=== PATIENT | female | born 1980 | race Caucasian/White ===

== ENCOUNTER 2017-01-21 01:06 | Inpatient (IN) | payer BC ==
[2017-01-21] MEDS ORDERED: Dibucaine 1% 28.35 GM TUBE PR PRN (08:20)
[2017-01-21] MEDS ORDERED: Witch Hazel PAD* JAR TOPICAL PRN (08:20)
[2017-01-21] MEDS ORDERED: Acetaminophen TAB* 325 MG PO PRN (08:20)
[2017-01-21] MEDS ORDERED: Ibuprofen TAB* 600 MG ONE (08:23)
[2017-01-21] MEDS: Ibuprofen TAB* 600 MG PO PRN ×3 (08:24→20:39)
[2017-01-21] MEDS ORDERED: Simethicone TAB* 80 MG TAB.CHEW PO SCH (08:30)
[2017-01-21] MEDS: Docusate CAP* 100 MG PO SCH ×3 (09:04→20:39)
[2017-01-22] MEDS: Ibuprofen TAB* 600 MG PO PRN ×3 (05:57→19:59)
[2017-01-22 07:55] LABS: Hematocrit 34 % (35-47); Hemoglobin 11.3 g/dl (12.0-16.0); Mean Corpuscular HGB Conc 33 g/dl (31-36); Mean Corpuscular Hemoglobin 30 pg (27-31); Mean Corpuscular Volume 91 fL (80-97); Mean Platelet Volume 10 um3 (7.4-10.4); Red Blood Count 3.78 10^6/ul (4.0-5.4); Red Cell Distribution Width 16 % (10.5-15); White Blood Count 14.3 10^3/ul (3.5-10.8)
[2017-01-22] MEDS: Docusate CAP* 100 MG PO SCH ×3 (08:52→22:18)
[2017-01-22] MEDS: Ferrous Gluconate TAB* 324 MG TAB PO SCH (22:19)
[2017-01-23] MEDS: Ferrous Gluconate TAB* 324 MG TAB PO SCH (00:06)
[2017-01-23] MEDS: Ibuprofen TAB* 600 MG PO PRN (08:02)
[2017-01-23] MEDS: Docusate CAP* 100 MG PO SCH (08:02)
[2017-01-23 08:06] VITALS: BP 115/69
== END 2017-01-23 10:51 | disposition home or self-care (01) | DRG 560 ==
LOC: MCHOBOUT 01:06 → MCHOB 01:31
PROVIDERS: ADMIT Obstetrics & Gynecology; ATTEND Obstetrics & Gynecology
PROC: 10E0XZZ Delivery of Products of Conception, External Approach (ICD-10-PCS; principal; 2017-01-21)
PROC: 0KQM0ZZ Repair Perineum Muscle, Open Approach (ICD-10-PCS; 2017-01-21)
PROC: 4A1HXCZ Monitoring of Products of Conception, Cardiac Rate, External Approach (ICD-10-PCS; 2017-01-21)
DX: O48.0 Post-term pregnancy (principal); O09.523 Supervision of elderly multigravida, third trimester; Z3A.40 40 weeks gestation of pregnancy; Z37.0 Single live birth; O70.1 Second degree perineal laceration during delivery; Z88.0 Allergy status to penicillin; Z91.040 Latex allergy status; Z87.891 Personal history of nicotine dependence
CPT/HCPCS: 36415; 85025; A9270-GY

== ENCOUNTER 2018-10-20 09:57 | Emergency (ER) | payer BC ==
[2018-10-20 10:13] VITALS: BP 128/62
--- NOTE | 2018-10-20 10:37 | UC ---
Headache HPI - HPI Summary HPI Summary: Pt presents with c/o gradual onset migraine, that began last evening. Pt is 10 weeks and did not call her OB provider. Pt has a history of migraines but did not take any of her prescribed migraine medications - History Of Current Complaint Chief Complaint: UCHeadache Stated Complaint: HEADACHE Time Seen by Provider: 10/20/18 10:18 Hx Obtained From: Patient Hx Last Menstrual Period: 05/13/18 ?: Yes Onset/Duration: Gradual Onset, Lasting Hours, Still Present Onset Of Symptoms: Gradual Initially Headache Was: Moderate Currently Pain Is: Moderate Pain Intensity: 6 Timing: Constant Character: Dull, Throbbing, Pressure, Migraine Location of Headache: Parietal - left side Aggravating Factor(s): Bright Lights Allevating Factor(s): Nothing Associated Signs And Symptoms: Positive: Negative - Risk Factors SAH Risk Factors: Negative Meningitis Risk Factors: Negative SDH Risk Factors: Negative Temporal Arteritis Risk Factors: Negative - Allergies/Home Medications Allergies/Adverse Reactions: Allergies Allergy/AdvReac Type Severity Reaction Status Date / Time penicillin V [From Pen-Vee K] Allergy Rash Verified 10/20/18 10:13 Home Medications: Home Medications Acetaminophen [Extra Strength Non-Aspirin] 1,000 mg PO 10/20/18 [History] diphenhydrAMINE HCl [Benadryl Allergy] 25 mg PO 10/20/18 [History] PMH/Surg Hx/FS Hx/Imm Hx Previously Healthy: Yes - Surgical History Surgical History: Yes Surgery Procedure, Year, and Place: lymph node removal - Family History Known Family History: Positive: Cardiac Disease - Social History Occupation: Employed Full-time Lives: With Family Alcohol Use: None Alcohol Amount: 2 DRINKS a time Substance Use Type: None Substance Use Comment - Amount & Last Used: once and a while Smoking Status (MU): Former Smoker Type: Cigarettes Length of Time of Smoking/Using Tobacco: 14 yrs Have You Smoked in the Last Year: No When Did the Patient Quit Smoking/Using Tobacco: 2 yrs ago - Immunization History Most Recent Influenza Vaccination: 2016 Most Recent Tetanus Shot: 11/13/16 Most Recent Pneumonia Vaccination: never Review of Systems All Other Systems Reviewed And Are Negative: Yes Constitutional: Positive: Negative Skin: Positive: Negative Eyes: Positive: Negative ENT: Positive: Negative Respiratory: Positive: Negative Cardiovascular: Positive: Negative Gastrointestinal: Positive: Negative Genitourinary: Positive: Negative Motor: Positive: Negative Neurovascular: Positive: Negative Musculoskeletal: Positive: Negative Neurological: Positive: Headache Psychological: Positive: Negative Is Patient Immunocompromised?: Yes Physical Exam Triage Information Reviewed: Yes Appearance: Well-Appearing Vital Signs: Initial Vital Signs Temp 98.0 F 10/20/18 10:10 Pulse 77 10/20/18 10:10 Resp 18 10/20/18 10:10 BP 128/62 10/20/18 10:10 Pulse Ox 100 10/20/18 10:10 Vital Signs Reviewed: Yes Eye Exam: Normal Eyes: Positive: Other: - PERRLA ENT Exam: Normal Dental Exam: Normal Neck exam: Normal Respiratory Exam: Normal Cardiovascular Exam: Normal Cardiovascular: Positive: RRR Musculoskeletal Exam: Normal Musculoskeletal: Positive: Strength Intact Neurological Exam: Normal Psychological Exam: Normal Skin Exam: Normal Headache Course/Dx - Differential Dx/Diagnosis Provider Diagnosis: Migraine Discharge - Sign-Out/Discharge Documenting (check all that apply): Patient Departure All imaging exams completed and their final reports reviewed: No Studies - Discharge Plan Condition: Stable Disposition: HOME Patient Education Materials: (ED), Migraine Headache (ED) Referrals: Gabby Parmar MD [Primary Care Provider] - Jenny Ordonez CNM [Station Repairer] - 10/20/18 2:00 pm Joe Cabrera MD [Medical Doctor] - Additional Instructions: PLEASE NOTE THAT IF ANY SYMPTOMS CHANGE OR WORSENS PLEASE GO DIRECTLY TO THE CLOSEST EMERGENCY ROOM - Billing Disposition and Condition Condition: STABLE Disposition: Home
== END 2018-10-20 10:57 | disposition home or self-care (01) ==
LOC: UCEAST 09:57
DX: G43.909 Migraine, unspecified, not intractable, without status migrainosus (principal); O26.891 Other specified pregnancy related conditions, first trimester; Z3A.10 10 weeks gestation of pregnancy; Z88.0 Allergy status to penicillin; Z87.891 Personal history of nicotine dependence
CPT/HCPCS: 81003; 99211; G0463

== ENCOUNTER 2019-05-10 11:38 | Inpatient (IN) | payer BC ==
[2019-05-10] MEDS ORDERED: Lactated Ringers 1000 ML Bag* 1,000 ML IV ONE (12:42)
[2019-05-10] MEDS ORDERED: Misoprostol TAB* 100 MCG PO ONE (12:42)
[2019-05-10] MEDS ORDERED: Buffered Lidocaine 1% SYRIN* 1 ML/SYRINGE INTRADERM ONE (12:42)
--- NOTE | 2019-05-10 12:49 | HP ---
General Information - Reason for Visit Induction of labor at term - General Information Maternal Age: 39 Grav: 4 Para: 2 SAB: 0 IEA: 1 Estimated Due Date: 05/17/19 Determined By: LMP Maternal Blood Type and Rh: O Positive - Results this Serology/RPR Result: Non-Reactive Rubella Result: Immune HBsAg Result: Negative HIV Result: Negative GBS Culture Result: Negative Past Medical History Delivery History: Hx Uncomplicated Vaginal Delivery Pertinent Past Medical History: See Records Past Medical History Comment: Postural orthostatic tachycardia ADHD - stopped Adderol with Depression/Anxiety - no medications currently Asthma - mild Migraine Back pain - cervical spinal stenosis Pertinent Past Surgical History: None Pertinent Family History: See Records Family History Comment: Mother: hypothyroidism, migraine Father: Hypertension, COPD, hypercholesterolemia - Antepartal Records Antepartal Records: Reviewed, Complicated by: - history of rapid labors, AMA - age 39 at delivery Review of Systems Constitutional: Comfortable CV Complaint: No Respiratory: Shortness of Breath: No Gastrointestinal: Normal Bowel Movement, Nausea - mild nausea, normal for her this Genitourinary: No Dysuria, No Bleeding, No Leaking Fluid Musculoskeletal: No Complaint, No Epigastric Pain Neurological: No Visual Changes, Headache - mild headache Movement: Normal Exam Allergies/Adverse Reactions: Allergies penicillin V [From Pen-Vee K] Allergy (Verified 10/20/18 10:13) Rash B/P: 128/86, P: 109, R: 20, T: 99.2 - Measurements Height: 5 ft 5 in Weight: 173 lb Weight in lbs: 173.334013 Body Mass Index (BMI): 28.8 Pre- Weight: 150 lb Weight Gained This : 23 lbs and 0 ozs - Exam Breast: Breast Exam Deferred CVA: No CVA Tenderness Extremities: No Edema Heart: Normal Rhythm/Heart Sounds HEENT: No Significant Findings Lungs: Clear Bilaterally Reflexes: DTR 2+ Thyroid: No Thyromegaly - Abdominal Exam Abdomen Exam: Non-Tender, Fundal Height Consistent with Dates - Ultrasound/Biophysical Profile Ultrasound Status: Not Done Targeted Exam Findings See L&D Outpatient Visit Provider Note for Findings: N/A Estimated Weight: 8.5 lb by eder's Cervical Exam: 1cm Effacement: 50% Station: -2 Presenting Part: Vertex Membrane Status: Intact Bleeding/Discharge: None EFM Findings - External Monitor Findings Baseline Heart Rate: 155 External Monitor Findings: Accelerations Present, No Pattern of Variable or Late Decelerations, Variability Moderate, Baseline Stable Contractions: Irregular, Mild, < 45 Seconds Assessment/Plan - Assessment A: IUP at 39 0/7 weeks Category I FHR, no evidence of metabolic acidemia GBS negative P: Admit to inpatient Discussed options for induction, pt opts for misoprosol 50 mcg PO Reviewed labor preferences, Shantel would like an epidural this time Reassess in 2-4 hrs or sooner as indicated Anticipate SVB - Plan Plan: Induction, Admit - Anticipate Vaginal Delivery - Date/Time of Admission Date of Admission: 05/10/19 Time of Admission: 13:00
[2019-05-10] MEDS ORDERED: Lactated Ringers 1000 ML Bag* 1,000 ML IV SCH (13:00)
[2019-05-10 15:34] LABS: ABS Lymphocytes 1.7 10^3/ul (1.0-4.8); ABS Monocytes 0.5 10^3/ul (0-0.8); ABS Neutrophils 6.9 10^3/ul (1.5-7.7); Eosinophil % 0.5 %; Hematocrit 35 % (35-47); Hemoglobin 11.7 g/dL (12.0-16.0); Lymphocyte % 18.7 %; Mean Corpuscular HGB Conc 34 g/dL (31-36); Mean Corpuscular Hemoglobin 31 pg (27-31); Mean Corpuscular Volume 91 fL (80-97); Mean Platelet Volume 10.2 fL (7.4-10.4); Platelet Count 155 10^3/uL (150-450); Red Blood Count 3.84 10^6 /uL (3.70-4.87); Red Cell Distribution Width 15 % (10-15); White Blood Count 9.2 10^3/uL (3.5-10.8)
--- NOTE | 2019-05-10 17:34 | PN ---
Progress Note - Progress Note Date of Service: 05/10/19 Note: S: Reports some UCs, has been up moving around the room O: B/P: 121/66, P: 77, R: 18, T: 99.2 FHR: baseline 135, moderate variability, + accelerations, no decelerations UCs: q2-6, mild to palpation VE: 1.5/50/-2, intact A: IUP at 39 2/7 weeks Category I FHR, no evidence of metabolic acidemia Hernandez Score: 5 P: Discussed further ripening vs trial of IV pitocin. Pt elects to trial of pitocin at this time Reassess in 2-3 hrs or sooner as indicated Anticipate SVB
[2019-05-10] MEDS ORDERED: Oxytocin in LR* 20 UNITS/1,000 ML BAG IVPB SCH (18:00)
[2019-05-10] MEDS ORDERED: Dinoprostone* 10 MG VAG.SUPP VAGINAL ONE (21:14)
--- NOTE | 2019-05-10 21:19 | PN ---
Progress Note - Progress Note Date of Service: 05/10/19 Note: S: Up ambulating around room, feeling UCs in her lower abdomen. at bedside for support O: B/P: 116/71, P: 78, R: 16, T: 98.6 FHR: Baseline 135, moderate variability, +accelerations, no decelerations UCs: q2-4 min, moderate to palpation VE: 1.5/60/-2, intact A: IUP at 39 0/7 weeks Category I FHR, no evidence of metabolic acidemia Hernandez score: 5 P: Offered continuation of pitocin vs cervidil overnight. Pt opts for cervidil. Reassess PRN
[2019-05-10] MEDS ORDERED: Nalbuphine* 10 MG/ML 1 ML VIAL IV ONE (22:00)
[2019-05-10] MEDS ORDERED: Promethazine INJ(RESTRICTED)* 25 MG/ML 1 ML VIAL IM ONE (22:00)
[2019-05-11] MEDS ORDERED: Oxytocin in LR* 20 UNITS/1,000 ML BAG IVPB ONE (09:51)
--- NOTE | 2019-05-11 09:57 | PN ---
Progress Note - Progress Note Date of Service: 05/11/19 Note: S: Pt napped this morning. Feeling some tightening but nothing too strong or painful yet. Ready to proceed with induction. O: BP 120/83 T 98.7 RR 18 FHT: 125bpm. Moderate variability. +Accels. No decels. UCs q 3-4, mild VE: 3cm/70%/vtx -2, membranes swept. +Bloody show A: IUP at 39-1/7 here for term IOL No evidence of metabolic acidemia P: Discussed trial of IV pitocin and possible amniotomy. Pt hoping for labor epidural so consents to IV pitocin but would like to delay amniotomy until after CEI placement as she tends to progress quickly after her water breaks.
[2019-05-11] MEDS ORDERED: Oxytocin in LR* 20 UNITS/1,000 ML BAG IVPB SCH ×2 (10:00→15:00)
[2019-05-11] MEDS ORDERED: OBEPIDURAL* 250 ML EPIDURAL ONE (11:47)
--- NOTE | 2019-05-11 11:51 | PN ---
Progress Note - Progress Note Date of Service: 05/11/19 Note: S: Pt increasingly uncomfortable with UCs. Requesting epidural O: VSS, afebrile FHT 130bpm. Moderate variability. +Accels. No decels UCs q 2-4 min IV pitocin at 4mu/min VE: 4cm/80%/vtx -2, BBOW A: IUP at 39-1/7 in early active labor No evidence of metabolic acidemia P: Anesthesia paged for consult
[2019-05-11] MEDS ORDERED: Phenylephrine 40 MCG/ML SYRINGE IV PUSH PRN ×2 (12:24)
[2019-05-11] MEDS ORDERED: Sodium Citrate/Citric Acid* 15 ML UDC PO PRN (12:24)
[2019-05-11] MEDS ORDERED: Lactated Ringers 1000 ML Bag* 1,000 ML IV ONE (12:24)
--- NOTE | 2019-05-11 12:58 | PN ---
Progress Note - Progress Note Date of Service: 05/11/19 Note: S: Pt comfortable s/p epidural O: VSS, afebrile FHT 130bpm. Moderate variability. +Accels. Isolated variable decel with UC, resolved UCs q 2-4 IV pit increased from 2mu/min to 4mu/min VE: 4-5cm/80%/vtx -1, AROM clear A: IUP at 39-1/7 in active labor Cat II FHT. Doubt metabolic acidemia P: Close monitoring of status. Anticipate progression to
[2019-05-11] MEDS ORDERED: OBEPIDURAL* 250 ML EPIDURAL SCH (13:00)
[2019-05-11] MEDS ORDERED: Lactated Ringers 1000 ML Bag* 1,000 ML IV SCH ×2 (13:00→15:00)
[2019-05-11] MEDS ORDERED: Witch Hazel PAD* JAR TOPICAL PRN (14:17)
[2019-05-11] MEDS ORDERED: Glycerin ADULT SUPP PR PRN (14:17)
[2019-05-11] MEDS ORDERED: Dibucaine 1% 28.35 GM TUBE PR PRN (14:17)
--- NOTE | 2019-05-11 14:30 | PROCNOTE ---
[facility] OB: Delivery Note - Delivery A Date of : 05/11/19 Time of : 13:53 [place] Sex: Male Score 1 Minute: 8 Score 5 Minutes: 9 Gestational Age in Weeks and Days at Delivery: 39 Weeks and 1 Days Delivery Method: Spontaneous Vaginal Labor: Induced Did Patient attempt ?: N/A, No Previous Amniotic Fluid: Clear Estimated Blood Loss: 350 Anesthesia/Analgesia: CEI for Labor Anesthesia Comment: Placed by Dr. Lozano Delivered By: Valentino Finn - Nursery Level of Nursery: Regular/Bedside - Perineum Perineal Injury: 1st Degree - repaired with 3-0 Rapide under local infiltration 1% lidocaine and epidural analgesia Perineal Repair: By Delivering Practioner - Events Delivery Events of Note: Pitocin During Labor - Additional Delivery Notes Additional Delivery Notes: Pt admitted for elective term induction. Received oral misoprostol x 1, trial IV pitocin and Cervidil per vagina overnight. Once cervidil removed pt noted to be in early labor. IV Pitocin re-started which led to onset active labor with expected progression to complete. Pt received labor epidural per preference with excellent relief. Category II FHT in active phase. Variable decels with uterine contractions, recovered to baseline and variability maintained. Pushed x 5 minutes. liveborn male. Slow, controlled delivery of head. OA to MARIA ISABEL. Nuchal cord x 1 reduced on perineum with ease. Shoulders followed with strong maternal push. [place] vigorous. Slow to cry despite tactile stimulation and bulb suction. Cord clamped x 2 and cut. [place] to warmer for further evaluation. With continued tactile stimulation spontaneous cry. HR>110bpm. SpO2 in expected range. [place] returned to maternal abdomen for remainder of transition. Spontaneous delivery intact placenta. Membranes complete. Fundus firm to massage with IV pitocin infusing. Minimal bleeding noted. Repair as above. EBL 350mL. At time of note mother and infant in stable condition. Planning to breast feed.
[2019-05-11] MEDS ORDERED: Lidocaine 1% INJ* 10 MG/ML 30 ML SDV ONE (15:16)
[2019-05-11] MEDS: Ibuprofen TAB* 600 MG PO PRN (15:57)
[2019-05-11] MEDS ORDERED: Simethicone TAB* 80 MG TAB.CHEW PO SCH (17:30)
[2019-05-11] MEDS: Acetaminophen TAB* 325 MG PO PRN (20:23)
[2019-05-11] MEDS: Docusate CAP* 100 MG PO SCH (20:24)
[2019-05-12] MEDS: Acetaminophen TAB* 325 MG PO PRN ×4 (00:59→20:28)
[2019-05-12] MEDS: Ibuprofen TAB* 600 MG PO PRN ×3 (05:11→18:15)
[2019-05-12 07:03] LABS: ABS Basophils 0.1 10^3/ul (0-0.2); ABS Eosinophils 0.1 10^3/ul (0-0.6); ABS Lymphocytes 2.3 10^3/ul (1.0-4.8); ABS Monocytes 0.7 10^3/ul (0-0.8); ABS Neutrophils 8.2 10^3/ul (1.5-7.7); Eosinophil % 0.6 %; Hematocrit 28 % (35-47); Hemoglobin 9.8 g/dL (12.0-16.0); Lymphocyte % 20.5 %; Mean Corpuscular HGB Conc 35 g/dL (31-36); Mean Corpuscular Hemoglobin 31 pg (27-31); Mean Corpuscular Volume 90 fL (80-97); Mean Platelet Volume 9.7 fL (7.4-10.4); Nucleated Red Blood Cells % 0.1; Platelet Count 131 10^3/uL (150-450); Red Blood Count 3.15 10^6 /uL (3.70-4.87); Red Cell Distribution Width 15 % (10-15); White Blood Count 11.3 10^3/uL (3.5-10.8)
[2019-05-12] MEDS: Ferrous Gluconate TAB* 324 MG TAB PO SCH ×2 (10:57→20:28)
[2019-05-12] MEDS: Docusate CAP* 100 MG PO SCH ×3 (10:57→20:28)
[2019-05-13] MEDS: Ibuprofen TAB* 600 MG PO PRN ×2 (00:32→08:37)
[2019-05-13 07:58] VITALS: BP 113/67
[2019-05-13] MEDS: Ferrous Gluconate TAB* 324 MG TAB PO SCH (08:38)
[2019-05-13] MEDS: Docusate CAP* 100 MG PO SCH (08:38)
== END 2019-05-13 11:25 | disposition home or self-care (01) | DRG 560 ==
LOC: MCHOBOUT 11:38 → MCHOB 13:07
PROVIDERS: ADMIT Midwife; ATTEND Midwife
PROC: 10E0XZZ Delivery of Products of Conception, External Approach (ICD-10-PCS; principal; 2019-05-11)
PROC: 10907ZC Drainage of Amniotic Fluid, Therapeutic from Products of Conception, Via Natural or Artificial Opening (ICD-10-PCS; 2019-05-11)
PROC: 3E033VJ Introduction of Other Hormone into Peripheral Vein, Percutaneous Approach (ICD-10-PCS; 2019-05-11)
PROC: 0HQ9XZZ Repair Perineum Skin, External Approach (ICD-10-PCS; 2019-05-11)
PROC: 4A1HXCZ Monitoring of Products of Conception, Cardiac Rate, External Approach (ICD-10-PCS; 2019-05-11)
PROC: 3E0P7VZ Introduction of Hormone into Female Reproductive, Via Natural or Artificial Opening (ICD-10-PCS; 2019-05-11)
DX: O69.81X0 Labor and delivery complicated by cord around neck, without compression, not applicable or unspecified (principal); Z37.0 Single live birth; Z3A.39 39 weeks gestation of pregnancy; O70.0 First degree perineal laceration during delivery; Z88.0 Allergy status to penicillin; O90.81 Anemia of the puerperium; O76 Abnormality in fetal heart rate and rhythm complicating labor and delivery
CPT/HCPCS: 36415; 85025; 86850; 86900; 86901; A9270-GY; J2300; J2550; S0191